=== PATIENT | female | born 1940 | race Caucasian/White ===

== ENCOUNTER 2017-07-27 20:20 | Emergency (ER) | payer MEDICARE ==
[~2017-07-27] VITALS: Ht 165.1 cm; Wt 84.0 kg
[2017-07-27] MEDS ORDERED: SODIUM CHLORIDE 0.9% FLUSH 10 ML FLUSH IV FLUSH PRN (20:30)
[2017-07-27 20:32] VITALS: BP 114/55; PULSE 63; RESP 18; TEMP 98.1; O2SAT 100
--- NOTE | 2017-07-27 20:32 | PD ---
HPI Chief Complaint: Fall Time Seen by Provider: 20:29 Travel History International Travel<30 days: No Contact w/Intl Traveler<30days: No Traveled to known affect area: No History of Present Illness HPI 76-year-old female brought in by ambulance for evaluation of right arm pain after mechanical trip and fall. The patient was at a [employer] party consuming alcohol when she tripped and fell landing onto her right arm. She complains of severe pain in her right arm/proximal humerus. She denies head injury or LOC. No head neck or back pain. No pain in any other joint or extremity. She was given 10 mg of IV morphine by EMS prior to arrival. [facility] Social History Tobacco Use: No Allergies-Medications (Allergen,Severity, Reaction): Coded Allergies: No Known Allergies (Unverified , 07/27/17) Reported Meds & Prescriptions Reported Meds & Active Scripts Active Percocet (Oxycodone-Acetaminophen) 5-325 mg Tab 1 Tab PO Q6H PRN Reported Diltiazem ER 12 HR (Diltiazem HCl) 120 Mg Caper 360 Mg PO BID Aspirin 81 (Aspirin) 81 Mg Tabdr 81 Mg PO DAILY Rosuvastatin (Rosuvastatin Calcium) 40 Mg Tab 50 Mg PO DAILY Losartan (Losartan Potassium) 100 Mg Tab 100 Mg PO DAILY Calcitriol 0.25 Mcg Cap 0.25 Mcg PO DAILY Review of Systems Except as stated in HPI: all other systems reviewed are Neg Physical Exam Narrative GENERAL: Well-developed, well-nourished, awake, alert, in obvious pain, no apparent distress. SKIN: Focused skin assessment warm/dry. Ecchymosis to right anterior/proximal arm. No lacerations or open wounds. HEAD: Atraumatic. Normocephalic. EYES: Pupils equal and round. No scleral icterus. No injection or drainage. ENT: Mucous membranes pink and moist. NECK: Trachea midline. No JVD. No midline cervical spine step-off or tenderness. CARDIOVASCULAR: Regular rate and rhythm. Bilateral distal radial pulses are brisk and equal. RESPIRATORY: No accessory muscle use. Clear to auscultation. Breath sounds equal bilaterally. GASTROINTESTINAL: Abdomen soft, non-tender, nondistended. MUSCULOSKELETAL: Skin exam as above with moderate edema to right arm. All compartments are supple in the right upper extremity. There is tenderness to the right arm/proximal arm. The rest of her joints and extremities are without deformity, without tenderness, with normal range of motion. NEUROLOGICAL: Awake and alert. No obvious cranial nerve deficits. Motor grossly within normal limits. Normal speech. PSYCHIATRIC: Appropriate mood and affect; insight and judgment normal. Data Data Last Documented VS Vital Signs Date Time Temp Pulse Resp B/P (MAP) Pulse Ox O2 Delivery O2 Flow Rate FiO2 07/27/17 22:31 07/27/17 22:17 75 18 95 07/27/17 20:32 98.1 Orders Orders Basic Metabolic Panel (Bmp) (07/27/17 20:29) Complete Blood Count With Diff (07/27/17 20:29) Prothrombin Time / Inr (Pt) (07/27/17 20:29) Act Partial Throm Time (Ptt) (07/27/17 20:29) Iv Access Insert/Monitor (07/27/17 20:29) Ecg Monitoring (07/27/17 20:29) Oximetry (07/27/17 20:29) Sodium Chloride 0.9% Flush (Ns Flush) (07/27/17 20:30) Alcohol (Ethanol) (07/27/17 20:29) Humerus (Min 2vws) (07/27/17 ) Oxycodone-Acetamin 5-325 Mg (Percocet (07/27/17 21:45) Sling And Swathe (07/27/17 ) Ed Discharge Order (07/27/17 21:44) Sling And Swathe (07/27/17 ) Labs Laboratory Tests Test 07/27/17 20:37 White Blood Count 6.7 TH/MM3 Red Blood Count 3.23 MIL/MM3 Hemoglobin 10.8 GM/DL Hematocrit 32.6 % Mean Corpuscular Volume 100.9 FL Mean Corpuscular Hemoglobin 33.5 PG Mean Corpuscular Hemoglobin Concent 33.2 % Red Cell Distribution Width 14.6 % Platelet Count 184 TH/MM3 Mean Platelet Volume 7.7 FL Neutrophils (%) (Auto) 56.1 % Lymphocytes (%) (Auto) 32.9 % Monocytes (%) (Auto) 7.8 % Eosinophils (%) (Auto) 2.8 % Basophils (%) (Auto) 0.4 % Neutrophils # (Auto) 3.7 TH/MM3 Lymphocytes # (Auto) 2.2 TH/MM3 Monocytes # (Auto) 0.5 TH/MM3 Eosinophils # (Auto) 0.2 TH/MM3 Basophils # (Auto) 0.0 TH/MM3 CBC Comment DIFF FINAL Differential Comment Prothrombin Time 10.3 SEC Prothromb Time International Ratio 1.0 RATIO Activated Partial Thromboplast Time 21.4 SEC Blood Urea Nitrogen 27 MG/DL Creatinine 1.60 MG/DL Random Glucose 104 MG/DL Calcium Level 8.5 MG/DL Sodium Level 142 MEQ/L Potassium Level 3.7 MEQ/L Chloride Level 109 MEQ/L Carbon Dioxide Level 22.0 MEQ/L Anion Gap 11 MEQ/L Estimat Glomerular Filtration Rate 31 ML/MIN Ethyl Alcohol Level 186 MG/DL [facility] Medical Decision Making Medical Screen Exam Complete: Yes Emergency Medical Condition: Yes Differential Diagnosis Right humerus fracture versus contusion Narrative Course Vital signs reviewed. CBC: WBC 6.7, hemoglobin 10.8, hematocrit 32.6, platelets 184. BMP is remarkable for BUN 27, creatinine 1.6, GFR 31. The patient reports that her baseline creatinine is around 1.6. Alcohol level is 186. Right humerus x-ray shows a nondisplaced proximal humerus fracture. The patient and the patient's were made aware of the x-ray findings. She will be placed in a sling and swath and referred for outpatient orthopedic follow-up this week. She was advised on when to return to the emergency department. She verbalizes understanding and agreement with plan. Diagnosis Primary Impression: Closed fracture of right proximal humerus Qualified Codes: S42.294A - Other nondisplaced fracture of upper end of right humerus, initial encounter for closed fracture Referrals: Alessio Frankel MD 3 days Orthopedist Additional Instructions: Follow-up with orthopedist Dr. Frankel or and orthopedist of your choice this week. Return to the emergency department for worsening symptoms or any other concerns. Scripts Oxycodone-Acetaminophen (Percocet) 5-325 mg Tab 1 TAB PO Q6H Y for PAIN, #20 TAB 0 Refills Prov: Ramirez Mahmood MD 07/27/17 Disposition: 01 DISCHARGE HOME Condition: Stable Ramirez Mahmood MD Jul 27, 2017 20:32
[2017-07-27] MEDS ORDERED: ROSU1TAB10 PO (20:41)
[2017-07-27] MEDS ORDERED: DILT120C9 PO (20:41)
[2017-07-27] MEDS ORDERED: ASPI1TAB57 PO (20:41)
[2017-07-27] MEDS ORDERED: CALC0.25 PO (20:41)
[2017-07-27] MEDS ORDERED: LOSA100T PO (20:41)
[2017-07-27 20:52] LABS: AUTOMATED NEUTROPHIL # 3.7 TH/MM3 (1.8-7.7); BASOPHIL % 0.4 % (0.0-2.0); EOSINOPHIL # 0.2 TH/MM3 (0-0.4); EOSINOPHIL % 2.8 % (0.0-4.0); HEMATOCRIT 32.6 % (35.0-46.0); HEMOGLOBIN 10.8 GM/DL (11.6-15.3); LYMPH % 32.9 % (9.0-44.0); LYMPHOCYTE # 2.2 TH/MM3 (1.0-4.8); MEAN CELL VOLUME 100.9 FL (80.0-100.0); MEAN CORPUSCULAR HEMOGLOBIN 33.5 PG (27.0-34.0); MEAN CORPUSCULAR HGB CONC 33.2 % (32.0-36.0); MEAN PLATELET VOLUME 7.7 FL (7.0-11.0); MONO % 7.8 % (0.0-8.0); MONOCYTE # 0.5 TH/MM3 (0-0.9); NEUT % 56.1 % (16.0-70.0); PLATELET COUNT 184 TH/MM3 (150-450); RED BLOOD COUNT 3.23 MIL/MM3 (4.00-5.30); RED CELL DISTRIBUTION WIDTH 14.6 % (11.6-17.2); WHITE BLOOD COUNT 6.7 TH/MM3 (4.0-11.0)
--- NOTE | 2017-07-27 21:03 | RADRPT ---
EXAM DATE/TIME: 07/27/2017 20:42 [facility] COMPARISON: No previous studies available for comparison. INDICATIONS : Fall pain in right upper arm on lateral side. MEDICAL HISTORY : None. SURGICAL HISTORY : None. ENCOUNTER: Initial ACUITY: 1 day PAIN SCORE: 8/10 LOCATION: Right humerus FINDINGS: There is a fracture of right proximal humerus underneath the surgical neck without any significant an gulation or displacement. CONCLUSION: Proximal humeral fracture. Anthony Lindsey MD on July 27, 2017 at 21:01 Board Certified Radiologist. This report was verified electronically.
[2017-07-27 21:10] LABS: PROTHROMBIN TIME - PATIENT 10.3 SEC (9.8-11.6)
[2017-07-27 21:13] LABS: CALCIUM 8.5 MG/DL (8.5-10.1); CREATININE 1.6 MG/DL (0.50-1.00)
[2017-07-27] MEDS ORDERED: PERC5TAB12 PO (21:44)
[2017-07-27] MEDS ORDERED: oxyCODONE/ACETAMINOPHEN 5 MG/325 MG TAB PO ONE (21:45)
[2017-07-27 22:17] VITALS: BP 115/59; PULSE 75; RESP 18; O2SAT 95
== END 2017-07-27 22:32 | disposition home or self-care (01) ==
LOC: NEPE 20:20
DX: S42.201A Unspecified fracture of upper end of right humerus, initial encounter for closed fracture (principal); W01.0XXA Fall on same level from slipping, tripping and stumbling without subsequent striking against object, initial encounter; Z79.82 Long term (current) use of aspirin; Z79.899 Other long term (current) drug therapy
CPT/HCPCS: 29240; 73060; 80048; 80307; 85025; 85610; 85730